=== PATIENT | female | born 1935 | race Two or more races ===

== ENCOUNTER → 2018-01-20 | Outpatient (CLI) | payer OTHER ==
[~2018-01-20] MED LIST: COLESTIPOL HCL1 G; COZAAR25 MG; COZAAR50 MG; DICLOFENAC POTA50 MG PO; ELOCON45 G1 TP; FOSAMAX10 MG; NORVASC2.5 MG; SIMVASTATIN10 MG; TENORMIN25 MG
== END | disposition home or self-care (01) ==
LOC: TOM 09:09
DX: J98.4 Other disorders of lung (principal)

== ENCOUNTER 2018-02-08 07:33 | Emergency (ER) | payer OTHER ==
[~2018-02-08] VITALS: Ht 152.4 cm; Wt 52.6 kg
[2018-02-08] MEDS ORDERED: SYNTHROID50 MCG (07:52)
[2018-02-08] MEDS ORDERED: DICLOFENAC SODI50 MG PO (11:07)
[2018-02-08] MEDS ORDERED: MEDROLPACK PO (11:07)
== END 2018-02-08 11:15 | disposition home or self-care (01) ==
LOC: ER 07:33
DX: S20.221A Contusion of right back wall of thorax, initial encounter (principal); W18.09XA Striking against other object with subsequent fall, initial encounter; Y93.89 Activity, other specified; Y92.018 Other place in single-family (private) house as the place of occurrence of the external cause; Y99.8 Other external cause status

== ENCOUNTER 2018-10-07 10:43 | Outpatient (CLI) | payer OTHER ==
[~2018-10-07 10:43] MED LIST changes: +DICLOFENAC SODI50 MG PO; +MEDROLPACK PO; +SYNTHROID50 MCG
== END 2018-10-07 15:54 | disposition home or self-care (01) ==
LOC: RAD 10:43
DX: M25.572 Pain in left ankle and joints of left foot (principal)

== ENCOUNTER → 2021-03-25 14:06 | Outpatient (CLI) | payer OTHER ==
[~2021-03-25 14:06] MED LIST changes: +VOLTAREN ARTHRI20 GM TOP
== END | disposition home or self-care (01) ==
LOC: RAD 14:06
PROVIDERS: ATTEND Orthopaedic Surgery
DX: M16.11 Unilateral primary osteoarthritis, right hip (principal); Z96.642 Presence of left artificial hip joint; Z76.89 Persons encountering health services in other specified circumstances

== ENCOUNTER 2021-06-16 08:00 | Outpatient (CLI) | payer OTHER | END 2021-06-16 08:30 | disposition home or self-care (01) | LOC: PPH VACUNA 08:00 | PROVIDERS: ATTEND Emergency Medicine Pediatric Emergency Medicine | DX: Z23 Encounter for immunization (principal) ==

== ENCOUNTER 2021-07-24 10:09 | Outpatient (CLI) | payer OTHER | END 2021-07-24 10:15 | disposition home or self-care (01) | LOC: MAMO-SONO 10:09 | PROVIDERS: ATTEND Obstetrics & Gynecology | DX: N60.11 Diffuse cystic mastopathy of right breast (principal); N64.59 Other signs and symptoms in breast; Z12.31 Encounter for screening mammogram for malignant neoplasm of breast ==

== ENCOUNTER 2021-08-05 08:11 | Outpatient (CLI) | payer OTHER | END 2021-08-05 08:21 | disposition home or self-care (01) | LOC: SONOGRAMA 08:11 | PROVIDERS: ATTEND Internal Medicine Gastroenterology | DX: N28.89 Other specified disorders of kidney and ureter (principal); K76.89 Other specified diseases of liver; K80.80 Other cholelithiasis without obstruction ==

== ENCOUNTER 2021-10-15 09:55 | Outpatient (CLI) | payer OTHER | END 2021-10-15 10:07 | disposition home or self-care (01) | LOC: TOM 09:55 | PROVIDERS: ATTEND Internal Medicine Gastroenterology | DX: K80.80 Other cholelithiasis without obstruction (principal); Q61.01 Congenital single renal cyst; K57.90 Diverticulosis of intestine, part unspecified, without perforation or abscess without bleeding; R10.2 Pelvic and perineal pain ==

== ENCOUNTER 2021-11-24 09:59 | Outpatient (CLI) | payer OTHER | END 2021-11-24 11:41 | disposition home or self-care (01) | LOC: LAB 09:59 | PROVIDERS: ATTEND Orthopaedic Surgery | DX: Z76.89 Persons encountering health services in other specified circumstances (principal); D64.9 Anemia, unspecified; E88.9 Metabolic disorder, unspecified; D68.8 Other specified coagulation defects; N39.0 Urinary tract infection, site not specified; A49.02 Methicillin resistant Staphylococcus aureus infection, unspecified site; E11.9 Type 2 diabetes mellitus without complications; I49.9 Cardiac arrhythmia, unspecified; I10 Essential (primary) hypertension ==

== ENCOUNTER 2021-12-01 08:40 | Outpatient (CLI) | payer OTHER | END 2021-12-01 08:41 | disposition home or self-care (01) | LOC: RAD 08:40 → LAB 08:40 | PROVIDERS: ATTEND Internal Medicine | DX: J18.9 Pneumonia, unspecified organism (principal) ==

== ENCOUNTER 2021-12-01 13:12 | Outpatient (CLI) | payer OTHER | END 2021-12-01 13:20 | disposition home or self-care (01) | LOC: TOM 13:12 | PROVIDERS: ATTEND Internal Medicine | DX: R91.1 Solitary pulmonary nodule (principal) ==

== ENCOUNTER 2021-12-03 13:07 | Outpatient (CLI) | payer OTHER | END 2021-12-03 13:10 | disposition home or self-care (01) | LOC: LAB 13:07 | PROVIDERS: ATTEND Orthopaedic Surgery | DX: Z03.818 Encounter for observation for suspected exposure to other biological agents ruled out (principal) ==

== ENCOUNTER 2021-12-05 09:12 | Inpatient (IN) | payer OTHER ==
[~2021-12-05] VITALS: Ht 152.4 cm; Wt 50.8 kg
[2021-12-05] MEDS ORDERED: LEVO-T75 MCG PO (09:56)
[2021-12-05] MEDS ORDERED: [UNRECOGNIZED DRUG - OTHER] PO (09:57)
[2021-12-05] MEDS ORDERED: ZETIA PO (09:57)
[2021-12-05] MEDS ORDERED: PRAVAST PO (09:57)
[2021-12-09] MEDS ORDERED: PRAVASTATIN SOD20 MG (10:36)
[2021-12-09] MEDS ORDERED: OLMESARTAN MEDO40 MG (10:36)
[2021-12-09] MEDS ORDERED: XARELTO10 M1 (10:36)
[2021-12-09] MEDS ORDERED: FOLIC ACID1 MG (10:36)
[2021-12-09] MEDS ORDERED: EZETIMIBE10 MG (10:36)
[2021-12-12] MEDS ORDERED: INTEGRA PLUS C1 EACH PO (09:45)
== END 2021-12-12 14:32 | DRG 469 ==
LOC: SURG 12-09 07:36 → O/R 12-09 07:36 → SURH 12-09 09:45 → SURG 12-09 15:32
PROVIDERS: ADMIT Orthopaedic Surgery; ATTEND Orthopaedic Surgery
PROC: 0SR90JZ Replacement of Right Hip Joint with Synthetic Substitute, Open Approach (ICD-10-PCS; principal; 2021-12-09 09:45)
DX: M16.11 Unilateral primary osteoarthritis, right hip (principal); S32.421A Displaced fracture of posterior wall of right acetabulum, initial encounter for closed fracture; M80.051A Age-related osteoporosis with current pathological fracture, right femur, initial encounter for fracture; D62 Acute posthemorrhagic anemia; M94.8X8 Other specified disorders of cartilage, other site; I10 Essential (primary) hypertension; E03.8 Other specified hypothyroidism

== ENCOUNTER 2022-01-27 08:00 | Outpatient (CLI) | payer OTHER ==
[~2022-01-27 08:00] MED LIST changes: +EZETIMIBE10 MG; +FOLIC ACID1 MG; +INTEGRA PLUS C1 EACH PO; +LEVO-T75 MCG PO; +OLMESARTAN MEDO40 MG; +PRAVAST PO; +PRAVASTATIN SOD20 MG; +XARELTO10 M1; +ZETIA PO; +[UNRECOGNIZED DRUG - OTHER] PO
== END 2022-01-27 08:30 | disposition home or self-care (01) ==
LOC: PPH VACUNA 08:00
PROVIDERS: ATTEND Emergency Medicine Pediatric Emergency Medicine
DX: Z23 Encounter for immunization (principal)
CPT/HCPCS: 0002A; 90471

== ENCOUNTER 2022-01-27 08:52 | Outpatient (CLI) | payer OTHER | END 2022-01-27 09:15 | disposition home or self-care (01) | LOC: RAD 08:52 | PROVIDERS: ATTEND Orthopaedic Surgery | DX: M16.11 Unilateral primary osteoarthritis, right hip (principal); S32.421A Displaced fracture of posterior wall of right acetabulum, initial encounter for closed fracture ==

== ENCOUNTER 2022-03-19 09:25 | Outpatient (CLI) | payer OTHER | END 2022-03-19 14:02 | disposition home or self-care (01) | LOC: RAD 09:25 | PROVIDERS: ATTEND Orthopaedic Surgery | DX: M25.551 Pain in right hip (principal) ==

== ENCOUNTER 2022-07-03 08:34 | Outpatient (CLI) | payer OTHER | END 2022-07-03 15:08 | disposition home or self-care (01) | LOC: SONOGRAMA 08:34 | PROVIDERS: ATTEND Internal Medicine | DX: N18.32 Chronic kidney disease, stage 3b (principal); E03.8 Other specified hypothyroidism ==

== ENCOUNTER 2022-09-02 10:22 | Outpatient (CLI) | payer OTHER | END 2022-09-02 11:00 | disposition home or self-care (01) | LOC: TOM 10:22 | PROVIDERS: ATTEND Orthopaedic Surgery | DX: S42.031A Displaced fracture of lateral end of right clavicle, initial encounter for closed fracture (principal) ==

== ENCOUNTER 2022-11-04 10:08 | Outpatient (CLI) | payer OTHER | END 2022-11-04 10:30 | disposition home or self-care (01) | LOC: RAD 10:08 | PROVIDERS: ATTEND Orthopaedic Surgery | DX: S42.031A Displaced fracture of lateral end of right clavicle, initial encounter for closed fracture (principal) ==

== ENCOUNTER 2023-06-09 09:46 | Outpatient (CLI) | payer OTHER | END 2023-06-09 10:10 | disposition home or self-care (01) | LOC: MAMO-SONO 09:46 | PROVIDERS: ATTEND Internal Medicine | DX: N64.4 Mastodynia (principal); R92.8 Other abnormal and inconclusive findings on diagnostic imaging of breast; Z12.31 Encounter for screening mammogram for malignant neoplasm of breast ==

== ENCOUNTER 2023-10-09 14:15 | Emergency (ER) | payer OTHER ==
[~2023-10-09] VITALS: Ht 154.9 cm; Wt 50.8 kg
== END 2023-10-09 19:08 | disposition home or self-care (01) ==
LOC: ER 14:17
DX: S01.81XA Laceration without foreign body of other part of head, initial encounter (principal); W19.XXXA Unspecified fall, initial encounter; Y93.89 Activity, other specified; Y92.018 Other place in single-family (private) house as the place of occurrence of the external cause; Y99.9 Unspecified external cause status; Z91.013 Allergy to seafood; Z91.048 Other nonmedicinal substance allergy status
CPT/HCPCS: 12001; 70450; 90471; 90714; 96372; 99284; J0690; J1670